=== PATIENT | female | born 1975 | race Caucasian/White ===

== ENCOUNTER 2020-11-02 19:26 | Emergency (ER) | payer OTHER ==
[~2020-11-02] VITALS: Ht 172.7 cm; Wt 104.5 kg
[2020-11-02] MEDS ORDERED: LIDOCAINE/EPI/TETRACAINE TOPICAL GEL 3 ML. TP ONE (20:00)
[2020-11-02] MEDS ORDERED: DIPH,PERTUSS(ACELL),TET VAC/PF 0.5 ML SYRINGE. VAX IM ONE (20:00)
[2020-11-02] MEDS ORDERED: LIDOCAINE WITH 8.4% SOD BICARB 3 ML DISP.SYRIN. ONE (20:55)
[2020-11-02 21:00] VITALS: BP 111/68
[2020-11-02] MEDS ORDERED: LIDOCAINE WITH 8.4% SOD BICARB 3 ML DISP.SYRIN. INJ ONE (21:00)
--- NOTE | 2020-11-02 21:08 | PHYS DOC ---
Past Medical History Past Medical History: Asthma, Diabetes-Type II Past Surgical History: No Surgical History Smoking Status: Current Every Day Smoker Alcohol Use: None Social History Narrative: GOES TO [facility] General Adult EDM: Chief Complaint: LACERATION/AVULSION HPI: HPI: Patient is a 45 year old female presenting to the ED today with right lower extremity laceration, patient states she was moving a bag of trash that had a broken picture frame which cut her. Review of Systems: Review of Systems: Constitutional: Denies fever or chills. [] Musculoskeletal: Denies back pain or joint pain. [] Integument: Reports right lower extremity laceration Neurologic: Denies headache, focal weakness or sensory changes. [] Psychiatric: Denies depression or anxiety. [] Heart Score: C/O Chest Pain: N/A Risk Factors: Risk Factors: DM, Current or recent (<one month) smoker, HTN, HLP, family history of CAD, obesity. Risk Scores: Score 0 - 3: 2.5% MACE over next 6 weeks - Discharge Home Score 4 - 6: 20.3% MACE over next 6 weeks - Admit for Clinical Observation Score 7 - 10: 72.7% MACE over next 6 weeks - Early Invasive Strategies Current Medications: Current Medications Medications (Trade) Dose Ordered Sig/Tere Start Time Stop Time Status Last Admin Dose Admin Diphtheria/ Tetanus/Acell Pertussis (ADACEL TDap SYRINGE) 0.5 ml ONCE ONCE 11/02/20 20:00 11/02/20 20:01 DC 11/02/20 20:05 0.5 ML Lidocaine HCl (Buffered Lidocaine 1%) 3 ml STK-MED ONCE 11/02/20 20:55 11/02/20 20:55 DC Tetracaine/ Epinephrine/ Lidocaine (Let (Quab-Nzcggwq-Aewmj) Gel) 6 ml 1X ONCE 11/02/20 20:00 11/02/20 20:01 DC 11/02/20 20:10 6 ML Allergies: Allergies: Allergies Coded Allergies Type Severity Reaction Last Updated Verified No Known Drug Allergies 11/02/20 No Physical Exam: PE: Constitutional: Well developed, well nourished, no acute distress, non-toxic appearance. [] Skin: Right lateral leg with a laceration approximately 5 cm long, there is no obvious tendon involvement. Full range of motion to the right lower extremity. +2 right pedal pulse. Cap refill less than 2 seconds to right toes. Sensation intact in the right lower extremity Back: No tenderness, no CVA tenderness. [] Extremities: No tenderness, no cyanosis, no clubbing, ROM intact, no edema. [] Neurologic: Alert and oriented X 3, normal motor function, normal sensory function, no focal deficits noted. [] Psychologic: Affect normal, judgement normal, mood normal. [] Current Patient Data: Labs: Laboratory Tests Test 11/02/20 19:52 POC Urine HCG, Qualitative Hcg negative (Negative) Vital Signs: Vital Signs Date Time Temp Pulse Resp B/P (MAP) Pulse Ox O2 Delivery O2 Flow Rate FiO2 11/02/20 19:28 98.5 89 20 140/81 (100) 96 98.5 EKG: EKG: [] Radiology/Procedures: Radiology/Procedures: Laceration/Wound Repair Wound Location: Right lower extremity Wound's Depth, Shape: Horizontal Wound Length (cm): Approximately 5 cm Wound Explored: clean Irrigated w/ Saline (ccs): 100 Betadine Prep?: Yes Anesthesia: Let solution 6 mL then 4 mm of buffered lidocaine Wound Repaired With: 7 angelica Progress : Wound was left open to air Course & Med Decision Making: Course & Med Decision Making Pertinent Labs and Imaging studies reviewed. (See chart for details) This is a 45-year-old female patient presenting to the ED today with right lower extremity laceration that was closed by me as noted in procedures. Wound care instructions and return precautions provided. Tetanus updated. Discharge to home Derrick Disclaimer: Derrick Disclaimer: This electronic medical record was generated, in whole or in part, using a voice recognition dictation system. Departure Departure Impression: Primary Impression: Laceration of right lower leg Qualified Codes: S81.811A - Laceration without foreign body, right lower leg, initial encounter Disposition: 01 DC HOME SELF CARE/HOMELESS Condition: STABLE Referrals: UNKNOWN PCP NAME (PCP) follow up with the ER in 7-10 days for staple removal Patient Instructions: Laceration Care, Adult Additional Instructions: You have right leg laceration that was closed with 7 angelica. You can shower and wash the area once or twice a day. Do not soak the area. Please apply Neosporin to the area twice a day. Monitor the area for any signs of infection including but not limited to increased redness, warmth, yellow drainage from the area and return to the ED if they occur. You can remove the dressing tomorrow and leave the area open to air if is not bleeding or draining. GERRY MIJARES APRN Nov 02, 2020 21:08
== END 2020-11-02 21:18 | disposition home or self-care (01) ==
LOC: ER 19:26
DX: S81.811A Laceration without foreign body, right lower leg, initial encounter (principal); R20.2 Paresthesia of skin; F17.200 Nicotine dependence, unspecified, uncomplicated; J45.909 Unspecified asthma, uncomplicated; E11.9 Type 2 diabetes mellitus without complications; W26.8XXA Contact with other sharp object(s), not elsewhere classified, initial encounter; Y93.89 Activity, other specified; Y92.89 Other specified places as the place of occurrence of the external cause; Y99.8 Other external cause status
CPT/HCPCS: 12002; 81025; 90471; 90715; 99283

== ENCOUNTER 2020-11-21 10:42 | Emergency (ER) | payer OTHER ==
[~2020-11-21] VITALS: Ht 172.7 cm; Wt 102.0 kg
[2020-11-21 10:51] VITALS: BP 103/65
[2020-11-21] MEDS ORDERED: MUPI22OI2 TP (11:24)
--- NOTE | 2020-11-21 11:24 | PHYS DOC ---
Past Medical History Past Medical History: Asthma, Diabetes-Type II Past Surgical History: No Surgical History Smoking Status: Current Every Day Smoker Alcohol Use: None General Adult EDM: Chief Complaint: SUTURE/STAPLE REMOVAL HPI: HPI: Patient is a 45 year old female who presents for suture removal from the right umana, angelica were placed November 02, 2020 in our ED, she states she saw her PCP at some point to have them removed but she was told they were not ready and the requested she returns to the ED Review of Systems: Review of Systems: Constitutional: Denies fever or chills. [] Musculoskeletal: Denies back pain or joint pain. [] Integument: Visit for staple removal Neurologic: Denies headache, focal weakness or sensory changes. [] Psychiatric: Denies depression or anxiety. [] Heart Score: C/O Chest Pain: N/A Risk Factors: Risk Factors: DM, Current or recent (<one month) smoker, HTN, HLP, family history of CAD, obesity. Risk Scores: Score 0 - 3: 2.5% MACE over next 6 weeks - Discharge Home Score 4 - 6: 20.3% MACE over next 6 weeks - Admit for Clinical Observation Score 7 - 10: 72.7% MACE over next 6 weeks - Early Invasive Strategies Allergies: Allergies: Allergies Coded Allergies Type Severity Reaction Last Updated Verified No Known Drug Allergies 11/02/20 No Physical Exam: PE: Constitutional: Well developed, well nourished, no acute distress, non-toxic appearance. [] Skin: Warm, dry, right umnaa with a well approximated laceration site with 7 angelica. No signs of infection. There is scabbing over the laceration site with slight erythema but no drainage, warmth or tenderness Back: No tenderness, no CVA tenderness. [] Extremities: No tenderness, no cyanosis, no clubbing, ROM intact, no edema. [] Neurologic: Alert and oriented X 3, normal motor function, normal sensory function, no focal deficits noted. [] Psychologic: Affect normal, judgement normal, mood normal. [] Current Patient Data: Vital Signs: Vital Signs Date Time Temp Pulse Resp B/P (MAP) Pulse Ox O2 Delivery O2 Flow Rate FiO2 11/21/20 10:51 98.4 82 18 103/65 (78) 96 Room Air 98.4 EKG: EKG: [] Radiology/Procedures: Radiology/Procedures: [] Course & Med Decision Making: Course & Med Decision Making Pertinent Labs and Imaging studies reviewed. (See chart for details) This is a 45-year-old female patient presenting to the ED today for staple removal from the right umana. The angelica have been since November 02, 2020. There is slight erythema over the laceration site but is well approximated, no drainage. [place] were removed by the ED RN, patient was placed on Bactroban and provided return precautions Dragon Disclaimer: Dragmarley Disclaimer: This electronic medical record was generated, in whole or in part, using a voice recognition dictation system. Departure Departure Impression: Primary Impression: Encounter for staple removal Disposition: 01 DC HOME SELF CARE/HOMELESS Condition: STABLE Referrals: UNKNOWN PCP NAME (PCP) follow up with your doctor as needed Patient Instructions: Staple Removal, Care After Additional Instructions: Please apply the ordered mupirocin to the area twice a day for 7 days. Return to the Ed if condition worsens Scripts Mupirocin (MUPIROCIN OINTMENT) 22 Gm Oint...g. 1 LINDA TP BID for WOUND CARE, #1 EACH Prov: GERRY MIJARES APRN 11/21/20 GERRY MIJARES APRN Nov 21, 2020 11:24
== END 2020-11-21 11:28 | disposition home or self-care (01) ==
LOC: ER 10:42
DX: S81.811D Laceration without foreign body, right lower leg, subsequent encounter (principal); J45.909 Unspecified asthma, uncomplicated; E11.9 Type 2 diabetes mellitus without complications; F17.200 Nicotine dependence, unspecified, uncomplicated; X58.XXXD Exposure to other specified factors, subsequent encounter
CPT/HCPCS: 99283